=== PATIENT | female | born 1990 | race Two or more races ===

== ENCOUNTER 2020-11-14 10:32 | Emergency (ER) | payer OTHER ==
[~2020-11-14] VITALS: Ht 154.9 cm; Wt 95.3 kg
[2020-11-14 11:15] VITALS: BP 124/70
[2020-11-14] MEDS ORDERED: METHOCARBAMOL 500 MG TAB PO ONE (12:00)
[2020-11-14] MEDS ORDERED: IBUPROFEN 800 MG TAB PO ONE (12:00)
== END 2020-11-14 12:43 | disposition home or self-care (01) ==
LOC: ER 10:32
DX: S16.1XXA Strain of muscle, fascia and tendon at neck level, initial encounter (principal); S09.90XA Unspecified injury of head, initial encounter; V49.9XXA Car occupant (driver) (passenger) injured in unspecified traffic accident, initial encounter; Y93.89 Activity, other specified; Y92.89 Other specified places as the place of occurrence of the external cause; Y99.8 Other external cause status